=== PATIENT | male | born 1950 | race Caucasian/White ===

== ENCOUNTER 2016-10-30 07:25 | Emergency (ER) | payer MEDICARE, BC ==
[2016-10-30] MEDS ORDERED: NORMAL SALINE 500 ML IV ONE (08:06)
[2016-10-30 08:34] VITALS: BP 101/65
--- NOTE | 2016-10-30 08:35 | ERNOTE ---
Head Injury HPI - General Injury to: head Source: EMS Exam Limitations: dementia - Immun/Allergies/Home Medications Allergies/Adverse Reactions: Allergies Allergy/AdvReac Type Severity Reaction Status Date / Time No Known Allergies Allergy Unverified 10/30/16 07:38 - History of Present Illness Narrative: Pt fell forward out of his wheelchair striking his head. No LOC Occurred: just prior to arrival Location Occurred: other - fdc Severity: mild Head Injury Location: frontal Method of Injury: Reports: fell Reason for Fall: Reports: lost balance Loss of Consciousness: Reports: no loss of consciousness Associated Symptoms: Reports: denies symptoms Review of Systems - Narrative Narrative: Pt has dementia but denies any symptoms - Review of Systems Constitutional: Present: no symptoms reported EYE: Present: no symptoms reported ENT: Present: no symptoms reported Respiratory: Present: no symptoms reported Cardiology: Present: no symptoms reported Gastrointestinal/Abdominal: Present: no symptoms reported Genitourinary: Present: no symptoms reported Musculoskeletal: Present: See HPI Skin: Present: See HPI Neurological: Present: no symptoms reported Endocrine: Present: no symptoms reported Hematologic/Lymphatic: Present: no symptoms reported Psych: Present: no symptoms reported - Patient's Past Medical History Patient History - Medical: Dementia, UTI'S, Other Patient History - Cardiac/Respiratory: Hypertension Patient History - Cancer: No Hx of Cancer Patient History - Surgical Procedures: No surgical history Patient History - Other: None - Social History Living Situations: fdc Physical Exam - Physical Exam General Appearance: Present: wd/wn, alert, no apparent distress Eye Exam: Normal inspection: bilateral, PERRL: bilateral, EOMI: bilateral Ears, Nose, Throat: Present: other - 5-6 cm hematoma over left brow, no laceration Neck: Present: normal inspection, nontender Respiratory: Present: no respiratory distress Back Exam: Present: normal inspection, normal range of motion, no vertebral tenderness Extremity Exam: Present: normal inspection, non-tender, no edema Neurological Exam: Present: alert - Pt answers yes/no questions. Smiles and laughs Skin Exam: Present: warm/dry, other - hematoma as described above ED Progress - Vital Signs Patient's Vital Signs:: I have reviewed the patient's vital signs. Vital Signs: Vital Signs 10/30/16 07:31 Temperature 36.3 C L Pulse Rate 63 Respiratory 18 Rate Blood Pressure 102/71 O2 Sat by Pulse 95 Oximetry - CT/Ultrasound CT/Ultrasound Narrative: CT head: large left frontal hematoma, no skull fractures. Extensive atrophy and white matter ischemic disease. No acute intracranial pathology - Progress/Reassessment Chief Complaint: Head Injury Progress:: Improved Departure Clinical Impression: Hypotension due to drugs Hematoma of frontal scalp Qualifiers: Encounter type: initial encounter Qualified Code(s): S00.03XA - Contusion of scalp, initial encounter - Departure [facility] Condition: Good Instructions: Head Injury, Adult, [id number], Facial or Scalp Contusion Additional Instructions: Recommend hold AM BP meds monitoring BP and if it goes below 100/60 consultation with his physician on reducing doses.
--- OUTSIDE RECORDS SUMMARY | 2016-10-30 09:07 | XMS REPORT | Continuity of Care Document ---
:1950 Author Organization [facility] ([facility]) [place] [address] Phone [phone] Care Team Providers Name Role Phone Michael Alves Primary Care Provider [phone] Source Comments This disclosure is being made pursuant to the Care Everywhere program, applicable federal and state laws, and may not contain all informaitonavailable regarding this patient.[facility] ([facility]) Active Allergies and Adverse Reactions Allergen Noted Date Severity Reactions Comments No Known Allergies 06/03/2012 NO REACTION Current Medications Prescription Sig. Disp. Refills Start Date End Date Status rosuvastatin (CRESTOR) Take 10 mg by mouth Active 10 mg tablet daily. divalproex 500 mg EC Take 500 mg by mouth Active tablet daily. divalproex (DEPAKOTE) Take 1,000 mg by Active 500 mg EC tablet mouth at bedtime. escitalopram (LEXAPRO) Take 10 mg by mouth Active 10 mg tablet daily. Clotrimazole-Betamethaso by Apply externally Active ne (LOTRISONE) 1-0.05 % route as needed. Lotn aluminum-magnesium Take 30 mL by mouth Active hydroxide-simethicone every 2 hours as (MAALOX) 200-200-20 mg/5 needed. mL liquid magnesium hydroxide Take 10 mL by mouth Active (MILK OF MAGNESIA daily as needed. CONCENTRATE) 2,400 mg/10 mL suspension acetaminophen (TYLENOL) Take 650 mg by mouth Active 325 mg tablet every 4 hours as needed. melatonin 3 mg Tab Take by mouth at Active tablet bedtime. ibuprofen 400 mg tablet Take 400 mg by mouth Active every 6 hours as needed. polyethylene glycol 3350 Take 17 g by mouth Active (MIRALAX) 17 gram packet daily. risperiDONE 0.5 mg Take 0.5 mg by mouth Active tablet 2 times daily. sennosides (SENNA) 8.6 Take 1 Tab by mouth Active mg tablet 2 times daily. amLODIPine 5 mg tablet Take 5 mg by mouth Active daily. tamsulosin (FLOMAX) 0.4 Take 0.4 mg by mouth Active mg ER capsule at bedtime. levothyroxine 75 mcg Take 75 mcg by mouth Active tablet every morning before breakfast. hydrALAZINE 25 mg tablet Take 25 mg by mouth Active 3 times daily. HYDROcodone-acetaminophe Take 1 Tab by mouth Active n 5-325 mg per tablet every 6 hours as needed. furosemide 80 mg tablet Take 80 mg by mouth Active daily. metoPROLol succinate 100 Take 100 mg by mouth Active mg XL tablet 2 times daily. lisinopril 10 mg tablet Take 10 mg by mouth Active daily. Take 1 tablet by mouth daily Active Problems Problem Noted Date Urge incontinence 06/07/2013 BPH (benign prostatic hyperplasia) 06/07/2013 Hypothyroid 06/17/2011 Depression 06/17/2011 HTN (hypertension) 06/17/2011 Social History Tobacco Use Types Packs/Day Years Used Date Never Smoker Smokeless Tobacco: Never Used Last Filed Vital Signs Vital Sign Reading Time Taken Blood Pressure 140/88 03/28/2014 9:57 AM CDT Pulse 68 03/28/2014 9:57 AM CDT Temperature 36.9 C (98.4 F) 03/28/2014 9:57 AM CDT Respiratory Rate 20 03/28/2014 9:57 AM CDT Height 1.854 m (6' 1") 06/08/2012 10:58 AM CDT Weight 114.76 kg (253 lb) 06/08/2012 10:58 AM CDT Body Mass Index 33.39 06/08/2012 10:58 AM CDT Oxygen Saturation 98% 03/28/2014 9:57 AM CDT Plan of Care Health Maintenance Due Date Last Done Comments HCV Screening 1950 Hepatitis B Vaccine (1 of 3 - Primary Series) 1950 Tdap Vaccine 1961 Lipid Disorder Screening 01/02/1968 Td Vaccine 01/02/1968 Colonoscopy 2000 Prostate Cancer Screening 01/02/2000 Zoster Vaccine 2010 Pneumococcal Vaccine (1 of 2 - PCV13) 2015 Influenza Vaccine: Seasonal (#1) 04/13/2016 Results from Last 3 Months Not on file
== END 2016-10-30 09:40 ==
LOC: ER 07:25
DX: I95.2 Hypotension due to drugs (principal); S00.03XA Contusion of scalp, initial encounter; W05.0XXA Fall from non-moving wheelchair, initial encounter; Y92.129 Unspecified place in nursing home as the place of occurrence of the external cause; I10 Essential (primary) hypertension

== ENCOUNTER 2016-11-04 21:21 | Emergency (ER) | payer MEDICARE, BC ==
--- NOTE | 2016-11-04 21:40 | ERNOTE ---
CARDIAC HPI - Narrative Narrative: Hypotension - General Stated Complaint:: Hypotension Time Seen by Provider: 11/04/16 21:29 Source: patient Exam Limitations: other - dementia - History of Present Illness Initial Comments: assisted sent patient to ED due to hypotension. Pt had a fall late last week and now has left knee swelling and bruising Severity: moderate Activities at Onset: none - Immun/Allergies/Home Medicatons Immunizations: IMMUNIZATION HX Immunizations Up to Date more informatino needed History of Influenza Vaccine More Information Required Hx Pneumococcal Vaccination More Information Required Allergies/Adverse Reactions: Allergies Allergy/AdvReac Type Severity Reaction Status Date / Time No Known Allergies Allergy Verified 11/04/16 21:40 Home Medications: Ambulatory Orders Medication Instructions Recorded Acetaminophen [Tylenol] 650 mg PO Q4H PRN 10/30/16 Amlodipine Besylate 10 mg PO DAILY 10/30/16 Calcium Carbonate/Vitamin D3 1 each PO PRN PRN 10/30/16 [Calcium 500 mg Chewable Tablet] Divalproex Sodium [Depakote ER] 100 mg PO HS 10/30/16 Divalproex Sodium [Depakote] 500 mg PO DAILY 10/30/16 Escitalopram Oxalate [Lexapro] 10 mg PO DAILY 10/30/16 Furosemide [Lasix] 80 mg PO DAILY 10/30/16 Hydrochlorothiazide 12.5 mg PO DAILY 10/30/16 Hydrocodone/Acetaminophen [Lorcet 1 each PO BID 10/30/16 5-325 mg Tablet] Levothyroxine Sodium [Synthroid] 75 mcg PO DAILY 10/30/16 Lisinopril [Zestril] 10 mg PO DAILY 10/30/16 Magnesium Hydroxide [Milk Of 10 ml PO DAILY PRN 10/30/16 Magnesia] Magnesium Hydroxide [Milk Of 30 ml PO PRN PRN 10/30/16 Magnesia] Melatonin/Pyridoxine [Melatonin 3 1 each PO HS 10/30/16 mg Tablet] Metoprolol Tartrate [Lopressor] 100 mg PO BID 10/30/16 Omeprazole [Prilosec] 20 mg PO DAILY 10/30/16 Risperidone [Risperdal] 1 mg PO BID 10/30/16 Rosuvastatin Calcium [Crestor] 10 mg PO DAILY 10/30/16 Sennosides/Docusate Sodium 1 each PO BID 10/30/16 [Senna-Docusate Sodium Tablet] Tamsulosin HCl [Flomax] 0.4 mg PO HS 10/30/16 hydrALAZINE HCL [Apresoline] 25 mg PO QID 10/30/16 Review of Systems - Narrative Narrative: Pt unable to give ROS due to dementia - Patient's Past Medical History Patient History - Medical: Dementia, UTI'S, Other Patient History - Cardiac/Respiratory: Hypertension Patient History - Cancer: No Hx of Cancer Patient History - Surgical Procedures: No surgical history Patient History - Other: None - Social History Living Situations: intermediate - Immunizations Immunizations Up to Date: - more informatino needed Hx Pneumococcal Vaccination: More Information Required to Determine History of Influenza Vaccine: More Information Required to Determine CP Exam - Physical Exam General Appearance: Present: no apparent distress Eyes, Ears, Nose, Throat Exam: Present: other - bruising around both eyes Neck: Present: non-tender Respiratory: Present: lungs clear, normal breath sounds, no respiratory distress Cardiovascular/Chest: Present: regular rate, rhythm, no chest tenderness Gastrointestinal/Abdominal: Present: normal bowel sounds, non tender Extremity: Present: normal range of motion, non-tender Neurologic: Present: process tank tender II-XII nml as tested, alert Skin Exam: Present: other - mild erythema left knee with bruising, bruising left forhead and around bilateral eyes ED Progress - PROGRESS/REASSESSMENT Condition: Improved Progress Note-Subjective: 11/05/16 00:01 BP improving with fluids, pt has been asymptomatic despite low BP. 11/05/16 02:36 [facility] here to transport pt back to [place] - VITAL SIGNS Vital Signs - Last Taken Temp 36.3 C L 10/30/16 09:40 Pulse Resp BP 101/65 10/30/16 09:40 Pulse Ox Departure - Departure Clinical Impression: Hypotension due to drugs, Recurrent dehydration [facility]position[facility] Condition: Good Additional Instructions: Pt has been in the ED twice in 5 days with hypotension due to dehydration. I would suggest to reduce his lasix to 40 mg daily and stop HCTZ. His BP would be better to stay in the 120-130 systolic range.
--- OUTSIDE RECORDS SUMMARY | 2016-11-04 21:52 | XMS REPORT | Continuity of Care Document ---
:1950 Author Organization [facility] ([facility]) [place] [address] Phone [phone] Care Team Providers Name Role Phone Michael Alves Primary Care Provider [phone] Source Comments This disclosure is being made pursuant to the Care Everywhere program, applicable federal and state laws, and may not contain all informaitonavailable regarding this patient.[facility] ([facility]) Active Allergies and Adverse Reactions Allergen [...]
[2016-11-04] MEDS ORDERED: NORMAL SALINE 1,000 ML IV ONE (22:28)
[2016-11-05 00:11] LABS: Hemoglobin 12.1 gm/dL (13.5-18.0); Mean Cell Volume 93.1 fl (78-100); Mean Corpuscular Hemoglobin 28.9 pg (27-31); Mean Platelet Volume 8.4 fl (6.0-9.5); Neutrophil # 5.4 K/mm3 (1.3-6.0); Neutrophil % 68.4 % (42-75.0); Platelet Count 110 K/mm3 (150-450); Red Blood Count 4.19 M/mm3 (4.7-6.0); Red Cell Distribution Width 13.2 % (11.5-14.0); White Blood Count 7.8 K/mm3 (4.0-10.5)
[2016-11-05 00:27] LABS: Albumin * 2.5 gm/dl (3.4-5.0); Anion Gap 11.5 mmol/L (6.8-13.8); BUN/Creatinine Ratio 16.6 (9.0-21.6); Bilirubin, Total 0.3 mg/dL (0.0-1.1); Ca. Corrected For Albumin 8.7 mg/dL (8.4-10.2); Calcium * 7.8 mg/dL (7.9-10.9); Carbon Dioxide 28.8 mmol/L (24-32.6); Potassium 3.3 mmol/L (3.4-4.6); Total Protein 6.4 gm/dL (6.2-8.2)
[2016-11-05 02:43] VITALS: BP 128/76
== END 2016-11-05 02:35 ==
LOC: ER 21:21
DX: I95.2 Hypotension due to drugs (principal); T50.1X5 Adverse effect of loop [high-ceiling] diuretics; E86.0 Dehydration
CPT/HCPCS: 36415; 73562; 80048; 80053; 85025; 96360; 99284; P9603

== ENCOUNTER 2016-11-06 15:19 | Inpatient (IN) | payer MEDICARE, BC ==
[2016-11-06] MEDS ORDERED: HYDROcodone/ACETAMINOPHEN 1 EACH TABLET PO PRN (15:23)
--- OUTSIDE RECORDS SUMMARY | 2016-11-06 15:24 | XMS REPORT | Continuity of Care Document ---
:1950 Author Organization [facility] ([facility]) [place] [address] Phone [phone] Care Team Providers Name Role Phone Michael Alves Primary Care Provider [phone] Source Comments This disclosure is being made pursuant to the Care Everywhere program, applicable federal and state laws, and may not contain all informaitonavailable regarding this patient.[facility] ([facility]) Active Allergies and Adverse Reactions Allergen [...]
[2016-11-06] MEDS ORDERED: DIATRIZOATE MEGLU/DIATRIZO SOD 30 ML BTL PO ONE (15:43)
[2016-11-06 15:53] LABS: Hematocrit 39.4 % (42.0-52.0); Hemoglobin 12.3 gm/dL (13.5-18.0); Mean Cell Volume 92.5 fl (78-100); Mean Corpuscular Hemoglobin 28.9 pg (27-31); Mean Corpuscular Hgb Conc 31.2 g/dl (32-36); Mean Platelet Volume 8.2 fl (6.0-9.5); Neutrophil # 4.1 K/mm3 (1.3-6.0); Neutrophil % 66.2 % (42-75.0); Platelet Count 117 K/mm3 (150-450); Red Blood Count 4.26 M/mm3 (4.7-6.0); Red Cell Distribution Width 12.9 % (11.5-14.0); White Blood Count 6.2 K/mm3 (4.0-10.5)
[2016-11-06 16:18] LABS: Troponin I Less than 0.017 ng/ml (0.00-0.10)
[2016-11-06 16:25] LABS: ALT 29 U/L (19-67); AST 54 U/L (0-48); Albumin * 2.7 gm/dl (3.4-5.0); Alkaline Phosphatase * 54 U/L (50-170); Amylase * 25 U/L (25-115); Anion Gap 9.9 mmol/L (6.8-13.8); BUN/Creatinine Ratio 20.8 (9.0-21.6); Bilirubin, Total 0.3 mg/dL (0.0-1.1); Blood Urea Nitrogen 58 mg/dL (6-23); CRP 3.5 mg/dL (0.0-0.9); Ca. Corrected For Albumin 8.8 mg/dL (8.4-10.2); Calcium * 8.1 mg/dL (7.9-10.9); Carbon Dioxide 32.8 mmol/L (24-32.6); Chloride 114 mmol/L (97-106); Glucose * 123 mg/dL (70-110); Lipase 171 U/L (73-393); Potassium 3.7 mmol/L (3.4-4.6); Sodium 153 mmol/L (132-142); T4 Free * 1.11 ng/dL (0.76-1.46); TSH * 1.893 uIU/mL (0.358-3.74); Total Protein 6.6 gm/dL (6.2-8.2)
[2016-11-06] MEDS: WATER IV SCH ×2 (17:25)
[2016-11-06] MEDS: DEXTROSE 5% IV SCH ×2 (17:25)
[2016-11-06] MEDS: POTASSIUM CHLORIDE IV SCH ×2 (17:25)
[2016-11-06 17:28] LABS: Urine Color Yellow
[2016-11-06 17:29] LABS: Urine Appearance Slightly Cloudy; Urine Bilirubin Negative (NEGATIVE); Urine Blood 10 /ul (NEGATIVE); Urine Ketone Negative (NEGATIVE); Urine Nitrite Negative (NEGATIVE); Urine Protein 15 mg/dL (NEGATIVE); Urine Specific Gravity 1.015 SP.GR. (1.005-1.030); Urine Urobilinogen Normal (NORMAL); Urine pH 7.5 pH (5.0-7.0)
[2016-11-06 17:30] LABS: Urine Bacteria TRACE; Urine RBC 0-5 /hpf (0-5)
[2016-11-06] MEDS ORDERED: WATER IV SCH ×2 (18:00)
[2016-11-06] MEDS ORDERED: POTASSIUM CHLORIDE IV SCH ×2 (18:00)
[2016-11-06] MEDS ORDERED: DEXTROSE 5% IV SCH ×2 (18:00)
--- NOTE | 2016-11-06 19:53 | HP ---
Chief Complaint - Chief Complaint Date of Service: 11/06/16 Time of Service: 19:34 Chief Complaint: Going down hill fast History of Present Illness: This is a 66 y/o mentally retarded man who lives at [facility]. 7 days ago, he fell out of his wheel chair and hit his head, sustaining a hematoma. He was evaluated then in the [facility] ER. Head CT was unremarkable. 2 days ago, he was sent to the [facility] ER again because of abdominal pain and low blood pressure. Some of his BP meds were stopped. Today , according to the staff at the [place] [facility], he has been rapidly declining for a week. He is not eating or drinking well, he has increasing abdominal pain, he is losing weight and he has become quite weak. Because of these things, he was sent directly to the [facility], and direct admitted to an observation bed for further study. At the present time, he is still complaining of lower abdominal pain, but is a vague historian. There has been no fever, vomiting or bloody stools. - Patient's Past Medical History Patient History - Medical: Anxiety, Dementia, Depression, Obesity, Renal Disease - chronic stage 3, BPH, Seizures, UTI'S, Other - mental retardation, allergic rhinitis Patient History - Cardiac/Respiratory: Coronary Heart Disease, Hypertension, Hyperlipidemia Patient History - Cancer: No Hx of Cancer Patient History - Surgical Procedures: No surgical history Patient History - Other: None - Family History Mother Family History - Medical: History Unknown Father Family History - Medical: History Unknown - Social History Living Situations: [facility] Abuse History: No History of abuse Psych History: Hx of Anxiety, Hx of Depression Smoking Status: Never smoker Have you smoked in the past 12 months: No Do you dip or chew tobacco: No Patient requests Smoking Cessation Consult: No Initiate information on Smoking Cessation: No Alcohol Use: none Drug Use: none - Immunizations Immunizations Up to Date: - more informatino needed Hx Pneumococcal Vaccination: More Information Required to Determine History of Influenza Vaccine: More Information Required to Determine Review Of Systems (GEN) - Review of Systems Generalized/Overall Review: Present: Weakness, Malaise EENTM: Present: No Symptoms Reported Respiratory: Present: No Symptoms Reported Cardiac: Present: No Symptoms Reported Abdominal: Present: Abdominal Pain Genitourinary: Present: No Symptoms Reported Musculoskeletal: Present: No Symptoms Reported Neurological: Present: Pre-existing Deficit Skin: Present: No Symptoms Reported Endocrine: Present: No Symptoms Reported Misc: All systems neg except as marked Immunizations: IMMUNIZATION HX Immunizations Up to Date more informatino needed History of Influenza Vaccine More Information Required Hx Pneumococcal Vaccination More Information Required Allergies/Adverse Reactions: Allergies Allergy/AdvReac Type Severity Reaction Status Date / Time No Known Allergies Allergy Verified 11/06/16 16:25 Home Medications: HOME MEDICATIONS Acetaminophen [Tylenol] 650 mg PO Q4H PRN 10/30/16 [Last Taken Unknown] Divalproex Sodium [Depakote] 500 mg PO DAILY 10/30/16 [Last Taken Unknown] Escitalopram Oxalate [Lexapro] 10 mg PO DAILY 10/30/16 [Last Taken Unknown] Hydrocodone/Acetaminophen [[place] 5-325 mg Tablet] 1 each PO BID 10/30/16 [Last Taken Unknown] Levothyroxine Sodium [Synthroid] 75 mcg PO DAILY 10/30/16 [Last Taken Unknown] Magnesium Hydroxide [Milk Of Magnesia] 30 ml PO PRN PRN 10/30/16 [Last Taken Unknown] Melatonin/Pyridoxine [Melatonin 3 mg Tablet] 1 each PO HS 10/30/16 [Last Taken Unknown] Metoprolol Tartrate [Lopressor] 100 mg PO BID 10/30/16 [Last Taken Unknown] Omeprazole [Prilosec] 20 mg PO DAILY 10/30/16 [Last Taken Unknown] Risperidone [Risperdal] 0.5 mg PO BID 10/30/16 [Last Taken Unknown] Rosuvastatin Calcium [Crestor] 10 mg PO HS 10/30/16 [Last Taken Unknown] Sennosides/Docusate Sodium [Senna-Docusate Sodium Tablet] 1 each PO BID [Last Taken Unknown] Divalproex Sodium [Depakote ER] 500 mg PO DAILY 11/06/16 [Last Taken Unknown] Divalproex Sodium [Depakote ER] 500 mg PO HS 11/06/16 [Last Taken Unknown] Exam - Exam Vital Signs: Vital Signs - Last Taken Selected Entries 11/06/16 16:05 Temperature 37.0 C Temperature Oral Source Pulse Rate 63 Pulse Rhythm Regular Pulse Strength Normal Respiratory 16 Rate Respiratory Normal Depth Respiratory Normal Effort Respiratory Normal Pattern Blood Pressure 111/74 Blood Pressure Supine Position O2 Sat by Pulse 93 Oximetry Oxygen Delivery Room Air Method Constitutional: Present: Alert, Cooperative, Well developed, Well nourished, No distress ENT Exam: Present: normal ENT inspection, hearing grossly normal, pharynx normal , TMs normal Eye Exam: bilateral eye: PERRL, EOMI, other - bruising around both eyes due to fall a week ago Neck: Present: non-tender, supple Back Exam: Present: normal inspection, no CVA tenderness, no vertebral tenderness Respiratory: Present: lungs clear, no respiratory distress Cardiovascular/Chest: Present: regular rate, rhythm, no murmur Abdomen: Present: Normal bowel sounds, soft, nondistended, no rebound tenderness , no hepatospenomegaly, no masses, tender - vague tenderness, perhaps more in lower than upper abdomen. Extremity: Present: normal inspection, no pedal edema Skin Exam: Present: normal color, no cyanosis, cool/dry Neurologic: Present: alert, oriented x 3 Appearance: Present: appropriate appearance, neat, impaired insight Eye contact: Present: cooperative, good eye contact, other - chronic inappropriate giggling Diagnostic Studies: Abnormal Lab Results 11/06/16 11/06/16 11/06/16 Range/Units 15:40 15:40 15:40 RBC (4.7-6.0) M/mm3 Hgb (13.5-18.0) gm/dL Hct (42.0-52.0) % MCHC (32-36) g/dl Plt Count (150-450) K/mm3 Immature Gran % (Auto) (0.001-0.429) % Immature Gran # (Auto) (0.000-0.0310) K/mm3 Monocytes % (0.0-9) % Lymphocytes # (1.5-3.5) k/mm3 ESR 40 H (0-10) mm/hr Sodium 153 H (132-142) mmol/L Plasma Sodium 153 H (130-142) mmol/L Chloride 114 H (97-106) mmol/L Carbon Dioxide 32.8 H (24-32.6) mmol/L BUN 58 H (6-23) mg/dL Creatinine 2.79 H D (0.4-1.4) mg/dL Est GFR (Non-Af Amer) 24 L D (60-130) mL/min Random Glucose 123 H (70-110) mg/dL AST 54 H (0-48) U/L C-Reactive Prot, Quant 3.5 H (0.0-0.9) mg/dL Albumin 2.7 L (3.4-5.0) gm/dl Prostate Specific Ag 12.50 H (0.00-4.00) ng/mL Urine Protein (NEGATIVE) mg/dL Urine Blood (NEGATIVE) /ul Ur Leukocyte Esterase (NEGATIVE) /ul Urine WBC (0-5) /hpf 11/06/16 11/06/16 Range/Units 15:40 17:10 RBC 4.26 L (4.7-6.0) M/mm3 Hgb 12.3 L (13.5-18.0) gm/dL Hct 39.4 L (42.0-52.0) % MCHC 31.2 L (32-36) g/dl Plt Count 117 L (150-450) K/mm3 Immature Gran % (Auto) 0.60 H (0.001-0.429) % Immature Gran # (Auto) 0.04 H (0.000-0.0310) K/mm3 Monocytes % 9.6 H (0.0-9) % Lymphocytes # 1.4 L (1.5-3.5) k/mm3 ESR (0-10) mm/hr Sodium (132-142) mmol/L Plasma Sodium (130-142) mmol/L Chloride (97-106) mmol/L Carbon Dioxide (24-32.6) mmol/L BUN (6-23) mg/dL Creatinine (0.4-1.4) mg/dL Est GFR (Non-Af Amer) (60-130) mL/min Random Glucose (70-110) mg/dL AST (0-48) U/L C-Reactive Prot, Quant (0.0-0.9) mg/dL Albumin (3.4-5.0) gm/dl Prostate Specific Ag (0.00-4.00) ng/mL Urine Protein 15 H (NEGATIVE) mg/dL Urine Blood 10 H (NEGATIVE) /ul Ur Leukocyte Esterase 100 H (NEGATIVE) /ul Urine WBC 5-10 H (0-5) /hpf Laboratory Results WBC 6.2 K/mm3 (4.0-10.5) 11/06/16 15:40 RBC 4.26 M/mm3 (4.7-6.0) L 11/06/16 15:40 Hgb 12.3 gm/dL (13.5-18.0) L 11/06/16 15:40 Hct 39.4 % (42.0-52.0) L 11/06/16 15:40 MCV 92.5 fl (78-100) 11/06/16 15:40 MCH 28.9 pg (27-31) 11/06/16 15:40 MCHC 31.2 g/dl (32-36) L 11/06/16 15:40 RDW 12.9 % (11.5-14.0) 11/06/16 15:40 Plt Count 117 K/mm3 (150-450) L 11/06/16 15:40 MPV 8.2 fl (6.0-9.5) 11/06/16 15:40 Immature Gran % (Auto) 0.60 % (0.001-0.429) H 11/06/16 15:40 Immature Gran # (Auto) 0.04 K/mm3 (0.000-0.0310) H 11/06/16 15:40 Neutrophils % 66.2 % (42-75.0) 11/06/16 15:40 Lymphocytes % 22.8 % (20-51) 11/06/16 15:40 Monocytes % 9.6 % (0.0-9) H 11/06/16 15:40 Eosinophils % 0.5 % (0.0-3.0) 11/06/16 15:40 Basophils % 0.3 % (0.0-1.0) 11/06/16 15:40 Nucleated RBC % 0.0 k/mm3 (0-1) 11/06/16 15:40 Neutrophils # 4.1 K/mm3 (1.3-6.0) 11/06/16 15:40 Lymphocytes # 1.4 k/mm3 (1.5-3.5) L 11/06/16 15:40 Monocytes # 0.6 k/mm3 (0.0-1.0) 11/06/16 15:40 Eosinophils # 0.0 k/mm3 (0.0-0.7) 11/06/16 15:40 Absolute Basophils 0.0 k/mm3 (0.0-0.1) 11/06/16 15:40 ESR 40 mm/hr (0-10) H 11/06/16 15:40 Sodium 153 mmol/L (132-142) H 11/06/16 15:40 Plasma Sodium 153 mmol/L (130-142) H 11/06/16 15:40 Potassium 3.7 mmol/L (3.4-4.6) 11/06/16 15:40 Chloride 114 mmol/L (97-106) H 11/06/16 15:40 Carbon Dioxide 32.8 mmol/L (24-32.6) H 11/06/16 15:40 Anion Gap 9.9 mmol/L (6.8-13.8) 11/06/16 15:40 BUN 58 mg/dL (6-23) H 11/06/16 15:40 Creatinine 2.79 mg/dL (0.4-1.4) H D 11/06/16 15:40 Est GFR (Non-Af Amer) 24 mL/min (60-130) L D 11/06/16 15:40 BUN/Creatinine Ratio 20.8 (9.0-21.6) 11/06/16 15:40 Random Glucose 123 mg/dL (70-110) H 11/06/16 15:40 Calcium 8.1 mg/dL (7.9-10.9) 11/06/16 15:40 Calcium Adj for Albumin 8.8 mg/dL (8.4-10.2) 11/06/16 15:40 Total Bilirubin 0.3 mg/dL (0.0-1.1) 11/06/16 15:40 AST 54 U/L (0-48) H 11/06/16 15:40 ALT 29 U/L (19-67) 11/06/16 15:40 Alkaline Phosphatase 54 U/L (50-170) 11/06/16 15:40 Troponin I Less than 0.017 ng/ml (0.00-0.10) 11/06/16 15:40 C-Reactive Prot, Quant 3.5 mg/dL (0.0-0.9) H 11/06/16 15:40 Total Protein 6.6 gm/dL (6.2-8.2) 11/06/16 15:40 Albumin 2.7 gm/dl (3.4-5.0) L 11/06/16 15:40 Amylase 25 U/L (25-115) 11/06/16 15:40 Lipase 171 U/L (73-393) 11/06/16 15:40 Prostate Specific Ag 12.50 ng/mL (0.00-4.00) H 11/06/16 15:40 TSH 1.893 uIU/mL (0.358-3.74) 11/06/16 15:40 Free T4 1.11 ng/dL (0.76-1.46) 11/06/16 15:40 Urine Color Yellow 11/06/16 17:10 Urine Appearance Slightly cloudy 11/06/16 17:10 Urine pH 7.5 pH (5.0-7.0) 11/06/16 17:10 Ur Specific [place] 1.015 SP.GR. (1.005-1.030) 11/06/16 17:10 Urine Protein 15 mg/dL (NEGATIVE) H 11/06/16 17:10 Urine Glucose (UA) Negative mg/dL (NEGATIVE) 11/06/16 17:10 Urine Ketones Negative mg/dL (NEGATIVE) 11/06/16 17:10 Urine Blood 10 /ul (NEGATIVE) H 11/06/16 17:10 Urine Nitrate Negative (NEGATIVE) 11/06/16 17:10 Urine Bilirubin Negative mg/dl (NEGATIVE) 11/06/16 17:10 Prot Sulfosalicylic Acd 1+ mg/dL (0) 11/06/16 17:10 Urine Urobilinogen Normal EU/dl (NORMAL) 11/06/16 17:10 Ur Leukocyte Esterase 100 /ul (NEGATIVE) H 11/06/16 17:10 Urine RBC 0-5 /hpf (0-5) 11/06/16 17:10 Urine WBC 5-10 /hpf (0-5) H 11/06/16 17:10 Ur Epithelial Cells 0-5 /hpf (0-5) 11/06/16 17:10 Urine Bacteria Trace (NONE) 11/06/16 17:10 Urine Culture Comments Culture to follow 11/06/16 17:10 Assessment/Plan - Narrative Narrative: Bladder scan for urinary retention. If significant, place and leave indwelling fontenot. Rehydrate. Monitor labs. Eventual urology referral due to large prostate and elevated PSA. Estimated stay at least one midnight. - Assessment/Plan (1) Dehydration with hypernatremia Problem: Acute (2) Acute renal failure superimposed on stage 3 chronic kidney disease Problem: Acute (3) BPH (benign prostatic hyperplasia) Problem: Acute Qualifiers: Prostatic enlargement morphology: unspecified morphology Lower urinary tract symptom presence: symptoms present Qualified Code(s): N40.1 - Benign prostatic hyperplasia with lower urinary tract symptoms (4) PSA elevation Problem: Acute (5) Mental retardation Problem: Chronic (6) Polycystic kidney disease Problem: Chronic (7) Seizure disorder Problem: Chronic (8) Hypothyroidism Problem: Chronic Qualifiers: Hypothyroidism type: acquired Qualified Code(s): E03.9 - Hypothyroidism, unspecified (9) Hyperlipidemia Problem: Chronic Qualifiers: Hyperlipidemia type: unspecified Qualified Code(s): E78.5 - Hyperlipidemia , unspecified (10) CAD (coronary artery disease) Problem: Chronic Qualifiers: Coronary Disease-Associated Artery/Lesion type: [place] artery [place] vs. transplanted heart: [place] heart Associated angina: without angina Qualified Code(s): I25.10 - Atherosclerotic heart disease of [place] coronary artery without angina pectoris (11) Allergic rhinitis Problem: Chronic Qualifiers: Allergic rhinitis trigger: unspecified Allergic rhinitis seasonality: unspecified seasonality Qualified Code(s): J30.9 - Allergic rhinitis, unspecified (12) Hematoma of frontal scalp Problem: Acute Qualifiers: Encounter type: subsequent encounter Qualified Code(s): S00.03XD - Contusion of scalp, subsequent encounter
[2016-11-06] MEDS: METOPROLOL TARTRATE 25 MG TABLET PO SCH (22:05)
[2016-11-07] MEDS: WATER IV SCH ×8 (00:19→20:53)
[2016-11-07] MEDS: POTASSIUM CHLORIDE IV SCH ×8 (00:19→20:53)
[2016-11-07] MEDS: DEXTROSE 5% IV SCH ×8 (00:19→20:53)
[2016-11-07 05:30] LABS: Hematocrit 35.2 % (42.0-52.0); Hemoglobin 11.3 gm/dL (13.5-18.0); Mean Cell Volume 90.5 fl (78-100); Mean Corpuscular Hgb Conc 32.1 g/dl (32-36); Mean Platelet Volume 8.6 fl (6.0-9.5); Neutrophil # 4.7 K/mm3 (1.3-6.0); Neutrophil % 67.7 % (42-75.0); Platelet Count 106 K/mm3 (150-450); Red Blood Count 3.89 M/mm3 (4.7-6.0); Red Cell Distribution Width 12.4 % (11.5-14.0)
[2016-11-07 06:08] LABS: Anion Gap 11.3 mmol/L (6.8-13.8); BUN/Creatinine Ratio 19.4 (9.0-21.6); Calcium * 8.2 mg/dL (7.9-10.9); Carbon Dioxide 30.2 mmol/L (24-32.6); Estimated Creat Clear 38.7; Potassium 3.5 mmol/L (3.4-4.6)
[2016-11-07] MEDS: LEVOTHYROXINE SODIUM 75 MCG TABLET PO SCH (06:38)
[2016-11-07] MEDS: METOPROLOL TARTRATE 25 MG TABLET PO SCH ×2 (09:23→20:54)
[2016-11-07] MEDS ORDERED: LIDOCAINE HCL 10 APPL CARTRIDGE TP ONE (11:15)
--- NOTE | 2016-11-07 12:50 | PN ---
Progess Note - Interim Narrative: 11/07/16 12:49 16 [place] crudet catheter placed by me, lidocaine jelly, betadine prep
--- NOTE | 2016-11-07 16:37 | PN ---
Subjective - Date and Time Seen Date: 11/07/16 Time: 16:34 Subjective Narrative: Generally better. Eating better. Staff couldn't get fontenot placed yesterday, so I placed today with 800 ml urine revealed. Objective - Review of Systems Generalized/Overall Review: Reports: Malaise EENTM: Reports: No Symptoms Reported Respiratory: Reports: No Symptoms Reported Cardiac: Reports: No Symptoms Reported Abdominal: Reports: No Symptoms Reported Genitourinary Symptoms: Reports: No Symptoms Reported Musculoskeletal Complaints: Reports: No Symptoms Reported Neurological: Reports: No Symptoms Reported Skin: Reports: No Symptoms Reported Endocrine: Reports: No Symptoms Reported Misc: All systems neg except as marked - Vitals Vitals: Last Vital Signs Selected Entries 11/07/16 15:10 Temperature 36.8 C Temperature Oral Source Pulse Rate 66 Respiratory 20 Rate Blood Pressure 118/64 Blood Pressure Supine Position O2 Sat by Pulse 93 Oximetry Oxygen Delivery Room Air Method - Abnormal Lab Findings Abnormal Lab Findings: Abnormal Lab Results 11/06/16 11/06/16 11/07/16 Range/Units 15:40 17:10 05:05 RBC 3.89 L (4.7-6.0) M/mm3 Hgb 11.3 L (13.5-18.0) gm/dL Hct 35.2 L (42.0-52.0) % Plt Count 106 L (150-450) K/mm3 Immature Gran % (Auto) 0.70 H (0.001-0.429) % Immature Gran # (Auto) 0.05 H (0.000-0.0310) K/mm3 Lymphocytes % 19.8 L (20-51) % Monocytes % 10.9 H (0.0-9) % Lymphocytes # 1.4 L (1.5-3.5) k/mm3 BUN (6-23) mg/dL Creatinine (0.4-1.4) mg/dL Est GFR (Non-Af Amer) (60-130) mL/min Random Glucose (70-110) mg/dL Prostate Specific Ag 12.50 H (0.00-4.00) ng/mL Urine Protein 15 H (NEGATIVE) mg/dL Urine Blood 10 H (NEGATIVE) /ul Ur Leukocyte Esterase 100 H (NEGATIVE) /ul Urine WBC 5-10 H (0-5) /hpf 11/07/16 Range/Units 05:05 RBC (4.7-6.0) M/mm3 Hgb (13.5-18.0) gm/dL Hct (42.0-52.0) % Plt Count (150-450) K/mm3 Immature Gran % (Auto) (0.001-0.429) % Immature Gran # (Auto) (0.000-0.0310) K/mm3 Lymphocytes % (20-51) % Monocytes % (0.0-9) % Lymphocytes # (1.5-3.5) k/mm3 BUN 40 H (6-23) mg/dL Creatinine 2.06 H D (0.4-1.4) mg/dL Est GFR (Non-Af Amer) 35 L D (60-130) mL/min Random Glucose 126 H (70-110) mg/dL Prostate Specific Ag (0.00-4.00) ng/mL Urine Protein (NEGATIVE) mg/dL Urine Blood (NEGATIVE) /ul Ur Leukocyte Esterase (NEGATIVE) /ul Urine WBC (0-5) /hpf - Exam Constitutional: Present: Alert, Cooperative, Well developed, Well nourished, No distress ENT Exam: Present: normal ENT inspection, hearing grossly normal Neck: Present: normal inspection Respiratory: Present: lungs clear, no respiratory distress Cardiovascular/Chest: Present: regular rate, rhythm, no murmur Abdomen: Present: Normal bowel sounds, soft, nontender, nondistended, no rebound tenderness, no hepatospenomegaly, no masses Extremity: Present: normal range of motion, non-tender, normal inspection, no pedal edema Skin Exam: Present: normal color, warm/dry, no cyanosis Neurologic: Present: alert Appearance: Present: appropriate appearance, neat Eye contact: Present: cooperative Cauti Physician Documentation - Urinary Catheter Management Urethral (Fontenot) Date of Insertion: 11/07/16 Time of Insertion: 13:45 Assessment/Plan Plan Narrative: Follow labs. Leave catheter. Continue antibiotics for now. - Problems/Diagnosis (1) Dehydration with hypernatremia Problem: Acute (2) Acute renal failure superimposed on stage 3 chronic kidney disease Problem: Acute (3) BPH (benign prostatic hyperplasia) Problem: Acute Qualifiers: Prostatic enlargement morphology: unspecified morphology Lower urinary tract symptom presence: symptoms present Qualified Code(s): N40.1 - Benign prostatic hyperplasia with lower urinary tract symptoms (4) PSA elevation Problem: Acute (5) Mental retardation Problem: Chronic (6) Polycystic kidney disease Problem: Chronic (7) Seizure disorder Problem: Chronic (8) Hypothyroidism Problem: Chronic Qualifiers: Hypothyroidism type: acquired Qualified Code(s): E03.9 - Hypothyroidism, unspecified (9) Hyperlipidemia Problem: Chronic Qualifiers: Hyperlipidemia type: unspecified Qualified Code(s): E78.5 - Hyperlipidemia , unspecified (10) CAD (coronary artery disease) Problem: Chronic Qualifiers: Coronary Disease-Associated Artery/Lesion type: [place] artery [place] vs. transplanted heart: [place] heart Associated angina: without angina Qualified Code(s): I25.10 - Atherosclerotic heart disease of [place] coronary artery without angina pectoris (11) Allergic rhinitis Problem: Chronic Qualifiers: Allergic rhinitis trigger: unspecified Allergic rhinitis seasonality: unspecified seasonality Qualified Code(s): J30.9 - Allergic rhinitis, unspecified (12) Hematoma of frontal scalp Problem: Acute Qualifiers: Encounter type: subsequent encounter Qualified Code(s): S00.03XD - Contusion of scalp, subsequent encounter (13) Urinary retention Problem: Chronic
[2016-11-07] MEDS: NYSTATIN 30 APPL TUBE TP SCH ×2 (17:49→20:59)
[2016-11-08] MEDS: POTASSIUM CHLORIDE IV SCH ×8 (02:45→23:47)
[2016-11-08] MEDS: WATER IV SCH ×8 (02:45→23:47)
[2016-11-08] MEDS: DEXTROSE 5% IV SCH ×8 (02:45→23:47)
[2016-11-08] MEDS: ACETAMINOPHEN 325 MG TABLET PO PRN ×2 (04:38→21:27)
[2016-11-08 05:40] LABS: Hematocrit 36.6 % (42.0-52.0); Hemoglobin 12.2 gm/dL (13.5-18.0); Mean Cell Volume 87.6 fl (78-100); Mean Corpuscular Hemoglobin 29.2 pg (27-31); Mean Corpuscular Hgb Conc 33.3 g/dl (32-36); Mean Platelet Volume 8.2 fl (6.0-9.5); Neutrophil # 4.5 K/mm3 (1.3-6.0); Platelet Count 105 K/mm3 (150-450); Red Blood Count 4.18 M/mm3 (4.7-6.0); Red Cell Distribution Width 12.2 % (11.5-14.0); White Blood Count 6.5 K/mm3 (4.0-10.5)
[2016-11-08 05:53] LABS: Anion Gap 11.9 mmol/L (6.8-13.8); BUN/Creatinine Ratio 14.9 (9.0-21.6); Calcium * 8.3 mg/dL (7.9-10.9); Carbon Dioxide 27.3 mmol/L (24-32.6); Estimated Creat Clear 53.9; Potassium 4.2 mmol/L (3.4-4.6)
[2016-11-08] MEDS: LEVOTHYROXINE SODIUM 75 MCG TABLET PO SCH (06:49)
[2016-11-08] MEDS: METOPROLOL TARTRATE 25 MG TABLET PO SCH ×2 (08:10→21:28)
[2016-11-08] MEDS: NYSTATIN 15 APPL BTL TP SCH ×2 (08:13→21:30)
--- NOTE | 2016-11-08 13:01 | PN ---
Subjective - Date and Time Seen Date: 11/08/16 Time: 12:58 Subjective Narrative: Generally better. Eating better. Fontenot draining well. No abdominal pain now. Growing gram negative rods from urine. Objective - Review of Systems Generalized/Overall Review: Reports: Malaise EENTM: Reports: No Symptoms Reported Respiratory: Reports: No Symptoms Reported Cardiac: Reports: No Symptoms Reported Abdominal: Reports: No Symptoms Reported Genitourinary Symptoms: Reports: No Symptoms Reported Musculoskeletal Complaints: Reports: No Symptoms Reported Neurological: Reports: No Symptoms Reported Skin: Reports: No Symptoms Reported Endocrine: Reports: No Symptoms Reported Misc: All systems neg except as marked - Vitals Vitals: Last Vital Signs Selected Entries 11/08/16 10:47 Temperature 36.4 C L Temperature Skin Source Pulse Rate 78 Respiratory 20 Rate Blood Pressure 115/71 Blood Pressure Supine Position O2 Sat by Pulse 95 Oximetry Oxygen Delivery Room Air Method - Abnormal Lab Findings Abnormal Lab Findings: Abnormal Lab Results 11/08/16 11/08/16 Range/Units 04:50 04:50 RBC 4.18 L (4.7-6.0) M/mm3 Hgb 12.2 L (13.5-18.0) gm/dL Hct 36.6 L (42.0-52.0) % Plt Count 105 L (150-450) K/mm3 Immature Gran % (Auto) 0.80 H (0.001-0.429) % Immature Gran # (Auto) 0.05 H (0.000-0.0310) K/mm3 Lymphocytes % 17.7 L (20-51) % Monocytes % 11.4 H (0.0-9) % Lymphocytes # 1.2 L (1.5-3.5) k/mm3 Creatinine 1.48 H D (0.4-1.4) mg/dL Est GFR (Non-Af Amer) 51 L D (60-130) mL/min Random Glucose 120 H (70-110) mg/dL - Exam Constitutional: Present: Alert, Cooperative, Well developed, Well nourished, No distress ENT Exam: Present: normal ENT inspection Neck: Present: normal inspection Respiratory: Present: lungs clear, no respiratory distress Cardiovascular/Chest: Present: regular rate, rhythm, no murmur Abdomen: Present: Normal bowel sounds, soft, nontender, nondistended, no rebound tenderness, no hepatospenomegaly, no masses Extremity: Present: non-tender, no pedal edema Skin Exam: Present: normal color, warm/dry, no cyanosis Neurologic: Present: alert Appearance: Present: appropriate appearance, neat Eye contact: Present: cooperative Cauti Physician Documentation - Urinary Catheter Management Urethral (Fontenot) Date of Insertion: 11/07/16 Time of Insertion: 13:45 Assessment/Plan Plan Narrative: Follow labs. Leave fontenot. Will need urology consult urology as outpatient. IV rocephin - Problems/Diagnosis (1) Dehydration with hypernatremia Problem: Acute (2) Acute renal failure superimposed on stage 3 chronic kidney disease Problem: Acute (3) BPH (benign prostatic hyperplasia) Problem: Acute Qualifiers: Prostatic enlargement morphology: unspecified morphology Lower urinary tract symptom presence: symptoms present Qualified Code(s): N40.1 - Benign prostatic hyperplasia with lower urinary tract symptoms (4) PSA elevation Problem: Acute (5) Mental retardation Problem: Chronic (6) Polycystic kidney disease Problem: Chronic (7) Seizure disorder Problem: Chronic (8) Hypothyroidism Problem: Chronic Qualifiers: Hypothyroidism type: acquired Qualified Code(s): E03.9 - Hypothyroidism, unspecified (9) Hyperlipidemia Problem: Chronic Qualifiers: Hyperlipidemia type: unspecified Qualified Code(s): E78.5 - Hyperlipidemia , unspecified (10) CAD (coronary artery disease) Problem: Chronic Qualifiers: Coronary Disease-Associated Artery/Lesion type: [place] artery [place] vs. transplanted heart: [place] heart Associated angina: without angina Qualified Code(s): I25.10 - Atherosclerotic heart disease of [place] coronary artery without angina pectoris (11) Allergic rhinitis Problem: Chronic Qualifiers: Allergic rhinitis trigger: unspecified Allergic rhinitis seasonality: unspecified seasonality Qualified Code(s): J30.9 - Allergic rhinitis, unspecified (12) Hematoma of frontal scalp Problem: Acute Qualifiers: Encounter type: subsequent encounter Qualified Code(s): S00.03XD - Contusion of scalp, subsequent encounter (13) Urinary retention Problem: Chronic (14) Elevated PSA, between 10 and less than 20 ng/ml Problem: Acute (15) UTI (urinary tract infection) Problem: Acute Qualifiers: Urinary tract infection type: acute cystitis
[2016-11-09] MEDS: DEXTROSE 5% IV SCH ×2 (05:05)
[2016-11-09] MEDS: WATER IV SCH ×2 (05:05)
[2016-11-09] MEDS: POTASSIUM CHLORIDE IV SCH ×2 (05:05)
[2016-11-09 06:34] LABS: Anion Gap 13.7 mmol/L (6.8-13.8); BUN/Creatinine Ratio 9.8 (9.0-21.6); Calcium * 8.3 mg/dL (7.9-10.9); Carbon Dioxide 25.9 mmol/L (24-32.6); Estimated Creat Clear 48.9; Potassium 4.6 mmol/L (3.4-4.6)
[2016-11-09 06:39] VITALS: BP 126/79
[2016-11-09] MEDS: LEVOTHYROXINE SODIUM 75 MCG TABLET PO SCH (06:58)
[2016-11-09] MEDS: METOPROLOL TARTRATE 25 MG TABLET PO SCH (08:01)
[2016-11-09] MEDS: NYSTATIN 15 APPL BTL TP SCH (08:02)
--- NOTE | 2016-11-09 08:37 | DS ---
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 7 days ago, he fell out of his wheel chair and hit his head, sustaining a hematoma. He was evaluated then in the [facility] ER. Head CT was unremarkable. 2 days ago, he was sent to the [facility] ER again because of abdominal pain and low blood pressure. Some of his BP meds were stopped. Today , [facility], he has been rapidly declining for a week. He is not eating or drinking well, he has increasing abdominal pain, he is losing weight and he has become quite weak. Because of these things, he was sent directly to the [facility], and direct admitted to an observation bed initially but was transferred to acute status as he was found to have a distended bladder and they could not put a fontenot catheter in due to enlarged prostate. He also grew providentia struvii sensitive to Ceftriaxone. Dr. Mira Law was ablt to put a fontenot in and the patient has not copmplained of abdomInal pain anymore. He is now stable to be discharged to the [facility] and will schedule him an outpatient Urology consult. Will start him on Flomax and Proscar. Procedures Performed: none Discharge Disposition: [facility] [place]: [facility] [place] Condition: Fair Discharge Activity: Activity as tolerated Discharge Diet: General/regular food Discharge Level of Care:: [facility] - [facility] Additional Patient Instructions (free text): Please schedule a Urology consult on outpatient basis - BPH with urinary retention. Prescriptions (Any new or edited meds): Finasteride [Proscar] 5 mg PO DAILY #30 tablet Tamsulosin HCl [Flomax] 0.4 mg PO DAILY@1800 #30 cap.sr.24h Complete Home Medications List: Complete Home Medication List: Acetaminophen [Tylenol] 650 mg PO Q4H PRN 10/30/16 Divalproex Sodium [Depakote] 500 mg PO DAILY 10/30/16 Escitalopram Oxalate [Lexapro] 10 mg PO DAILY 10/30/16 Hydrocodone/Acetaminophen [Lorcet 5-325 mg Tablet] 1 each PO BID 10/30/16 Levothyroxine Sodium [Synthroid] 75 mcg PO DAILY 10/30/16 Magnesium Hydroxide [Milk Of Magnesia] 30 ml PO PRN PRN 10/30/16 Melatonin/Pyridoxine [Melatonin 3 mg Tablet] 1 each PO HS 10/30/16 Metoprolol Tartrate [Lopressor] 100 mg PO BID 10/30/16 Omeprazole [Prilosec] 20 mg PO DAILY 10/30/16 Risperidone [Risperdal] 0.5 mg PO BID 10/30/16 Rosuvastatin Calcium [Crestor] 10 mg PO HS 10/30/16 Sennosides/Docusate Sodium [Senna-Docusate Sodium Tablet] 1 each PO BID Divalproex Sodium [Depakote ER] 500 mg PO DAILY 11/06/16 Divalproex Sodium [Depakote ER] 500 mg PO HS 11/06/16 Finasteride [Proscar] 5 mg PO DAILY #30 tablet 11/09/16 Tamsulosin HCl [Flomax] 0.4 mg PO DAILY@1800 #30 cap.sr.24h 11/09/16
[2016-11-09] MEDS ORDERED: FINASTERIDE 5 MG TABLET PO SCH (09:00)
[2016-11-09] MEDS ORDERED: TAMSULOSIN HCL 0.4 MG CAP.SR.24H PO SCH (18:00)
== END 2016-11-09 11:02 | DRG 641 ==
LOC: MS 15:19 → UNDOADMOB 15:19 → OBSVTOIN 11-07 15:19 → MS 11-07 15:19
PROVIDERS: ADMIT Allergy & Immunology; ATTEND Allergy & Immunology
DX: E87.0 Hyperosmolality and hypernatremia (principal); N17.9 Acute kidney failure, unspecified; Q61.3 Polycystic kidney, unspecified; N40.1 Benign prostatic hyperplasia with lower urinary tract symptoms; E03.9 Hypothyroidism, unspecified; E86.0 Dehydration; R97.20 Elevated prostate specific antigen [PSA]; I25.10 Atherosclerotic heart disease of native coronary artery without angina pectoris; E78.5 Hyperlipidemia, unspecified; J30.9 Allergic rhinitis, unspecified; I10 Essential (primary) hypertension; I12.9 Hypertensive chronic kidney disease with stage 1 through stage 4 chronic kidney disease, or unspecified chronic kidney disease; N18.3 Chronic kidney disease, stage 3 (moderate); F79 Unspecified intellectual disabilities

== ENCOUNTER 2017-01-13 12:15 | Day surgery (SDC) | payer MEDICARE, BC ==
[~2017-01-13 12:15] MED LIST: MORPHINE SULFATE 2 MG/ML DISP.SYRIN IV PRN; NORMAL SALINE 1,000 ML IV PRN; OXYBUTYNIN CHLORIDE 5 MG TABLET PO PRN; oxyCODONE HCL/ACETAMINOPHEN 1 TAB TABLET PO PRN
--- OUTSIDE RECORDS SUMMARY | 2017-01-13 12:19 | XMS REPORT | Continuity of Care Document ---
:1950 Author Organization [facility] ([facility]) [place] [address] Phone [phone] Care Team Providers Name Role Phone Michael Alves Primary Care Provider [phone] Source Comments This disclosure is being made pursuant to the Care Everywhere program, applicable federal and state laws, and may not contain all informaitonavailable regarding this patient.[facility] ([facility]) Active Allergies and Adverse Reactions Allergen [...]
[2017-01-13] MEDS ORDERED: NORMAL SALINE 1,000 ML IV ONE (14:20)
--- NOTE | 2017-01-13 14:45 | OR ---
Operative Report - Dictated Report Narrative: Location: Main OR Anesthesia: MAC Preoperative Diagnosis: Neurogenic bladder/BPH with obstruction Postoperative Diagnosis: Same, prostate does appear obstructing but does have high pressure change in the bladder and probable neurogenic component as well. Procedure: #1 flexible cystoscopy with washing for cytology and culture Indications: 67-year-old male catheter dependent with history of renal failure from either neurogenic bladder for BPH with obstruction or combination of both. Above-mentioned procedures indicated to make sure no additional pathology and bladder and to try and assess if possibly TURP may benefit/get him catheter free. Description: Consent obtained. Placed in the dorsal lithotomy position. Prepped and draped. Time-out taken . Patient has significant ventral erosion down below glans from indwelling catheter. Scope inserted into the urethra and navigated to the bladder with ease. There was some debris in the bladder making visualization suboptimal all in all got a pretty good picture. No obvious tumors stones or suspicious lesions. There is obstructive change/ evidence of high pressure voiding with some diverticula. Capacity appears decreased. Could not see ureters for sure based on debris and trabeculation. Washing was obtained sent for cytology and culture Bladder neck a bit high riding there is an intravesical component. Prostate is medium, inflamed with bilobar hypertrophy again does look obstructing. 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 I do think TURP may help but there will be no way to predict to what degree neurogenic/permanent damage may affect situation and whether or not he comes off of catheter. With recurrent infection, ventral erosion ultimately we'll be family decision but I think TURP still reasonable as if he gets off of the catheter quality of life will improve. If not he will be back in original situation. There is risk associated with surgery so that has to be weighed against this benefit. At the very least I think he should be changed to suprapubic tube is he will continue to erode the urethra and is approaching the scrotum. FOLLOW UP: Need to discuss with family. My backup follow-up in 6 months with ultrasound/creatinine.
[2017-01-13 15:50] VITALS: BP 157/95
== END 2017-01-13 12:16 | disposition home or self-care (01) ==
LOC: AMB 12:15
PROVIDERS: ATTEND Urology
PROC: 3E1K88X Irrigation of Genitourinary Tract using Irrigating Substance, Via Natural or Artificial Opening Endoscopic, Diagnostic (ICD-10-PCS; 2017-01-13)
PROC: 0TJB8ZZ Inspection of Bladder, Via Natural or Artificial Opening Endoscopic (ICD-10-PCS; principal; 2017-01-13 15:40)
DX: N40.1 Benign prostatic hyperplasia with lower urinary tract symptoms (principal); N13.8 Other obstructive and reflux uropathy; N31.9 Neuromuscular dysfunction of bladder, unspecified; I12.9 Hypertensive chronic kidney disease with stage 1 through stage 4 chronic kidney disease, or unspecified chronic kidney disease; N18.3 Chronic kidney disease, stage 3 (moderate); E78.5 Hyperlipidemia, unspecified; E03.9 Hypothyroidism, unspecified; F03.90 Unspecified dementia, unspecified severity, without behavioral disturbance, psychotic disturbance, mood disturbance, and anxiety; F32.9 Major depressive disorder, single episode, unspecified; Z68.29 Body mass index [BMI] 29.0-29.9, adult

== ENCOUNTER 2017-01-18 15:34 | Emergency (ER) | payer MEDICARE, BC ==
--- OUTSIDE RECORDS SUMMARY | 2017-01-18 15:52 | XMS REPORT | Continuity of Care Document ---
:1950 Author Organization [facility] ([facility]) [place] [address] Phone [phone] Care Team Providers Name Role Phone Michael Alves Primary Care Provider [phone] Source Comments This disclosure is being made pursuant to the Care Everywhere program, applicable federal and state laws, and may not contain all informaitonavailable regarding this patient.[facility] ([facility]) Active Allergies and Adverse Reactions Allergen Noted [...]
[2017-01-18 16:07] LABS: Hematocrit 48.9 % (42.0-52.0); Hemoglobin 15.4 gm/dL (13.5-18.0); Mean Cell Volume 87.5 fl (78-100); Mean Corpuscular Hemoglobin 27.5 pg (27-31); Mean Corpuscular Hgb Conc 31.5 g/dl (32-36); Mean Platelet Volume 8.7 fl (6.0-9.5); Neutrophil # 7.3 K/mm3 (1.3-6.0); Neutrophil % 73.8 % (42-75.0); Platelet Count 127 K/mm3 (150-450); Red Blood Count 5.59 M/mm3 (4.7-6.0); Red Cell Distribution Width 14.6 % (11.5-14.0); White Blood Count 9.9 K/mm3 (4.0-10.5)
[2017-01-18 16:24] LABS: ALT 25 U/L (19-67); AST 34 U/L (0-48); Albumin * 2.1 gm/dl (3.4-5.0); Alkaline Phosphatase * 58 U/L (50-170); Anion Gap 10.6 mmol/L (6.8-13.8); BUN/Creatinine Ratio 15.4 (9.0-21.6); Bilirubin, Total 0.3 mg/dL (0.0-1.1); Blood Urea Nitrogen 20 mg/dL (6-23); Ca. Corrected For Albumin 10.1 mg/dL (8.4-10.2); Calcium * 8.9 mg/dL (7.9-10.9); Carbon Dioxide 29.6 mmol/L (24-32.6); Chloride 111 mmol/L (97-106); Glucose * 139 mg/dL (70-110); Potassium 4.2 mmol/L (3.4-4.6); Sodium 147 mmol/L (132-142); Total Protein 6.6 gm/dL (6.2-8.2); Valproic Acid 69.7 mcg/mL (50.0-100.0)
[2017-01-18 16:26] LABS: Troponin I Less than 0.017 ng/ml (0.00-0.10)
[2017-01-18] MEDS ORDERED: ERTAPENEM SODIUM 1,000 MG in NORMAL SALINE 100 ML IV ONE (17:15)
--- NOTE | 2017-01-18 17:17 | ERNOTE ---
Medical Problem HPI - Narrative Date of Service: 01/18/17 - General Chief Complaint: General Assessment Time Seen by Provider: 01/18/17 15:47 Source: EMS Exam Limitations: no limitations - Immun/Allergies/Home Medications Immunizations: IMMUNIZATION HX Immunizations Up to Date more informatino needed History of Influenza Vaccine More Information Required Hx Pneumococcal Vaccination More Information Required Allergies/Adverse Reactions: Allergies No Known Allergies Allergy (Verified 01/13/17 13:25) Home Medications: HOME MEDICATIONS Acetaminophen [Tylenol] 650 mg PO Q4H PRN 10/30/16 [Last Taken Unknown] Escitalopram Oxalate [Lexapro] 10 mg PO DAILY 10/30/16 [Last Taken Unknown] HYDROcodone/ACETAMINOPHEN [Lorcet 5-325 mg Tablet] 2 each PO BID 10/30/16 [Last Taken Unknown] Levothyroxine Sodium [Synthroid] 75 mcg PO DAILY 10/30/16 [Last Taken Unknown] Magnesium Hydroxide [Milk Of Magnesia] 30 ml PO Q2D 10/30/16 [Last Taken Unknown ] Melatonin/Pyridoxine [Melatonin 3 mg Tablet] 1 each PO HS 10/30/16 [Last Taken Unknown] Rosuvastatin Calcium [Crestor] 10 mg PO HS 10/30/16 [Last Taken Unknown] Sennosides/Docusate Sodium [Senna-Docusate Sodium Tablet] 1 each PO BID [Last Taken Unknown] Divalproex Sodium [Depakote ER] 1,000 mg PO HS 11/06/16 [Last Taken Unknown] Divalproex Sodium [Depakote ER] 500 mg PO DAILY 11/06/16 [Last Taken Unknown] Alprazolam [Xanax] 0.25 mg PO TID 01/12/17 [Last Taken Unknown] Calcium Carbonate [Tums] 1 - 2 tab PO PRN PRN 01/12/17 [Last Taken Unknown] Furosemide [Lasix] 80 mg PO DAILY 01/12/17 [Last Taken Unknown] Lisinopril [Prinivil] 10 mg PO DAILY 01/12/17 [Last Taken Unknown] Mag Hydrox/Aluminum Hyd/Simeth [Maalox Advanced Suspension] 30 ml PO Q2H PRN 10/30 [Last Taken Unknown] Metoprolol Succinate [Toprol Xl] 100 mg PO BID 01/12/17 [Last Taken 01/12/17 20: 00] Nystatin [Mycostatin Powder] 1 appl TP TID PRN 01/12/17 [Last Taken Unknown] Polyethylene Glycol 3350 [Miralax] 17 gm PO DAILY 01/12/17 [Last Taken Unknown] Tamsulosin HCl [Flomax] 0.4 mg PO HS 01/12/17 [Last Taken Unknown] amLODIPine BESYLATE [Norvasc] 10 mg PO DAILY 01/12/17 [Last Taken Unknown] hydrALAZINE HCL [Hydralazine HCl] 25 mg PO QID 01/12/17 [Last Taken Unknown] risperiDONE [Risperdal] 0.25 mg PO HS 01/12/17 [Last Taken Unknown] risperiDONE [Risperdal] 0.5 mg PO BID 01/12/17 [Last Taken Unknown] Sulfamethoxazole/Trimethoprim [Bactrim Ds] 1 tab PO BID #20 tab 01/18/17 [Last Taken Unknown] - History of Present History Narrative: Patient presents to the ED from the [facility]. By report he has been having some off and fevers and has been on antibiotics for UTI. Nursing noticed he was more confused and he had redness on his foot. [place] spoke with Dr Leyda Law, his PCP and he was directed to the ED. He cannot seem to answer questions or be able to provide Hx. He is alert in bed but I cannot understand him. Timing: other - unknown. Modifying Factors - (Improves): Present: other - unknown Modifying Factors - (Worsens): Present: other - unknown Review of Systems - Narrative Narrative: unable to obtain given pt dementia - Patient's Past Medical History Patient History - Medical: Anxiety, Depression, GERD, UTI'S, Other Patient History - Cardiac/Respiratory: Hypertension Patient History - Cancer: No Hx of Cancer Patient History - Surgical Procedures: Other Patient History - Other: None - Family History Adoption Family History - Medical: History Unknown Family History - Cardiac/Respiratory: History Unknown Family History - Cancer: History Unknown - Social History Living Situations: [facility] Abuse History: No History of abuse Psych History: Hx of Depression, Current tx/ever been on anti-depressants or anti-anxiety meds Alcohol Use: none Drug Use: none - Immunizations Immunizations Up to Date: - more informatino needed Hx Pneumococcal Vaccination: More Information Required to Determine History of Influenza Vaccine: More Information Required to Determine Physical Exam - Physical Exam General Appearance: Present: other - he is alert in bed, I cannot understand his verbalizations, appears comfortable, no distress. Eye Exam: Normal inspection: bilateral - no drainage Ears, Nose, Throat: Absent: dry mucous membranes Neck: Present: other - trachea midline Respiratory: Present: no respiratory distress, normal breath sounds, no accessory muscle use, lungs clear Cardiovascular/Chest: Present: regular rate, rhythm Gastrointestinal/Abdominal: Present: normal bowel sounds, nontender, soft, other - no rigidity Extremity Exam: Present: other - Some mild bilateral LE swelling. DP pulses present. There is cellulitis right foot dorsum with no lymphangitis and no evidence of nec fasc. No DVT findings. There is a small amt of redness left foot with a couple of small blisters. Neurological Exam: Present: alert, other - dementia noted Skin Exam: Present: other - cellulitis right dorsum of foot. ED Progress - Results and Orders Patient's Lab Results:: I have reviewed the patient's lab results. - Vital Signs Patient's Vital Signs:: I have reviewed the patient's vital signs. Vital Signs: Vital Signs 01/18/17 15:37 Temperature 37.3 C Pulse Rate 93 Respiratory 21 H Rate Blood Pressure 157/103 O2 Sat by Pulse 93 Oximetry - EKG EKG: NSR EKG read: Interp. by me EKG Comments: NSR, ectopy, rate 95. non-specific changes, no STEMI - X-Ray X-Ray #1 X-Ray: chest Interpretation: Reviewed by me X-ray Comments: I reviewed radiology report. NO clinical pneumonia - Progress/Reassessment Chief Complaint: General Assessment Progress Note-Subjective: 01/18/17 18:09 I discussed the case with Dr Huang, discussed clinical findings and labs. He recommends continuing current antibiotics and adding Bactrim with a return to the correction. I did give IV ABx. At this time no suggestion of sepsis, nec fasc or other clear acute life threat. 01/18/17 18:11 Departure - Departure Clinical Impression: [place]ulitis [place] [facility] [place] Instructions: Cellulitis, Adult, [id number] Additional Instructions: Continue current antibiotic. Add Bactrim. Phone report to Dr Huang tomorrow with condition report. Return for fever, increasing redness or if his condition worsens or changes in any way. Patient needs to have his potassium checked in 3 days. Prescriptions: Sulfamethoxazole/Trimethoprim [Bactrim Ds] 1 tab PO BID #20 tab
[2017-01-18 22:11] VITALS: BP 149/88
== END 2017-01-18 18:15 ==
LOC: ER 15:34
DX: L03.90 Cellulitis, unspecified (principal)